=== PATIENT | male | born 2000 | race Caucasian/White ===

== ENCOUNTER 2024-09-19 14:30 | Outpatient (CLI) | payer BC, SELFPAY ==
--- NOTE | 2024-09-19 14:00 | DI.RAD_ITS ---
Exam(s) XR LUMBAR SPINE COMPLETE EXAM: XR LUMBAR SPINE COMPLETE CLINICAL HISTORY: eval pathology,lumbar spine, m54.50. TECHNIQUE: 2D digital imaging was performed of the lumbar spine. Images were obtained. AP, later al, right oblique, left oblique and L5-S1 spot views were obtained. COMPARISON: No exams were available for comparison FINDINGS: BONES: No fracture or destructive lesion. Vertebral bodies are unremarkable. No facet hypertrophy steve ntified. DISKS: Intervertebral disc spaces are maintained. ALIGNMENT: Lumbar spinal alignment is within normal limits. No spondylolysis or spondylolisthesis. SOFT TISSUE: Normal. IMPRESSION: Unremarkable radiographs of the lumbar spine. DATA REPOSITORY: RADIATION DOSE DELIVERED:
== END 2024-09-19 14:50 ==
LOC: DI 14:30
PROVIDERS: Visit Provider Nurse Practitioner Family
DX: M54.50 Low back pain, unspecified (principal)
CPT/HCPCS: 72110

== ENCOUNTER 2024-10-11 19:21 | Outpatient (REF) | payer BC, SELFPAY ==
[2024-10-11 21:20] LABS: Bilirubin Negative (Negative); Blood Trace-intact (Negative); Clarity Clear (Clear); Glucose Negative (Negative); Ketones Negative (Negative); Leukocyte Esterase Negative (Negative); Nitrite Negative (Negative); Specific Gravity 1.015 (1.005-1.025)
[2024-10-11 21:30] LABS: Bacteria Rare HPF (Negative); C & S Indicated? No; Casts Negative LPF (Negative); Crystals Rare Calcium Oxalate HPF (Negative); Epithelial Cells Rare HPF (Negative); Mucus Trace (Negative); RBC 0-2 HPF (0-2); WBC 0-2 HPF (0-5)
== END 2024-10-11 19:22 | disposition home or self-care (01) ==
LOC: LBN 19:21
PROVIDERS: Visit Provider Nurse Practitioner Family
DX: R39.9 Unspecified symptoms and signs involving the genitourinary system (principal)
CPT/HCPCS: 81003; 81015

== ENCOUNTER 2024-10-24 11:19 | Emergency (ER) | payer BC, SELFPAY ==
[2024-10-24 11:22] VITALS: BP 132/81; PULSE 76; RESP 20; TEMP 36.8; O2SAT 96
[2024-10-24 11:26] VITALS: BP 132/81; PULSE 76; RESP 20; TEMP 36.8; O2SAT 96
--- NOTE | 2024-10-24 11:39 | ED.GENADUL_ITS ---
Discharge Plan Disposition Patient Disposition: Home Condition: Stable Discharge Details Clinical Impression: Contusion of nose Primary Care Provider: Unknown,Unknown ED Provider: Gary Ospina Home Meds and New Rx's Prescriptions: No Action No Known Home Meds Discharge Instructions Instructions: Minor Contusion ED Additional Instructions: You were seen in the emergency department for your face strike with a mallet, there is no nasal fracture or maxillary jaw fracture, should you have resumption of nosebleed please just apply gentle pressure, return to the ED for any uncontrollable nosebleeds, take Tylenol and ibuprofen for pain as needed, return for any changes in neurologic status or vision, uncontrollable nosebleed or any other emergent concern. HPI General Date/Time Provider Initiated Documentation: 10/24/24 11:39 . HPI Narrative: 24 year-old male presents to ED today by POV/ambulating with a chief complaint of nose/upper lip injury while at work, was accidentally struck with a large mallet removing a tire from a rim with onset just prior to arrival- bleeding controlled with pressure. Quality described as no severe pain, able to breathe through his nose, no radiation to dental fracture, bridge of nose pain, periorbital ecchymosis, orbital pain, headache, visual changes, LOC, nausea/vomiting. Severity is described as mild. Palliating factors include nothing specific. Provoking factors include nothing specific. Patient not anticoagulated. Related Data Home Medications ?Medication ?Instructions ?Recorded ?Confirmed Unknown [No Known Home Meds] 10/11/24 0 10/24/24 Allergies Allergy/AdvReac Type Severity Reaction Status Date / Time No Known Allergies Allergy Verified 10/24/24 11:28 General Stated Complaint: FacialProb BRANDON: 4 Review of Systems All systems reviewed & are unremarkable except as noted in HPI and below Exam Narrative Exam Narrative: GENERAL APPEARANCE: Well-nourished, non-toxic, awake and alert, atraumatic, no acute distress. SKIN: Warm, pink, dry, intact, without rashes/lesions/ulcerations. HEAD: Normocephalic, atraumatic, normal hair distribution for gender/age. EYES: Normal conjunctiva, no exudates on lids/lashes, EOMs intact, vision grossly intact ENT: Nares patent, no circumoral cyanosis, no facial swelling, no nasal crepitus, no maxillary tenderness or crepitus, mild tenderness in the upper lip area without lesion, no epistaxis, no periorbital ecchymosis NECK: Supple, trachea midline, painless cervical ROM. LUNGS/CHEST: Non-labored respirations, normal A/P diameter, symmetrical expansion, no chest wall deformity HEART (CV/PV): No peripheral edema, no JVD. ABDOMEN: Soft, non-distended, no guarding. MSK: Normal ROM, no swelling/deformity to bilateral UEs or LEs, moving all ex tremities without weakness, no cyanosis, spine midline without tenderness, normal curvature. NEURO: Mental Status AAOx4 - alert to person, place, time, events No facial droop, no forehead involvement. Motor: No focal weakness - strength 5/5 in bilateral UEs and LEs, proximal and distal, symmetric. Sensory: sensation intact to light touch globally. Gait normal: patient ambulated without ataxia into ED room. PSYCH: euthymic, cooperative, pleasant, appropriate speech Course Vital Signs Vital signs: Vital Signs Temperature 36.8 C 10/24/24 11:22 Pulse 76 10/24/24 11:22 Respiratory Rate 20 10/24/24 11:22 Blood Pressure 132/81 10/24/24 11:22 Pulse Oximetry 96 10/24/24 11:22 Temperature 36.8 C 10/24/24 11:26 Pulse 76 10/24/24 11:26 Respiratory Rate 20 10/24/24 11:26 Blood Pressure 132/81 10/24/24 11:26 Blood Pressure Position Sitting 10/24/24 11:26 Pulse Oximetry 96 10/24/24 11:26 Oxygen Delivery Method Room Air 10/24/24 11:26 Oxygen Flow Rate 0 10/24/24 11:26 Medical Decision Making This dictation utilizes [id number] dictation software and may contain unedited grammatical errors. 24 year-old male presents to ED today by POV/ambulating with a chief complaint of nose/upper lip injury while at work, was accidentally struck with a large mallet removing a tire from a rim with onset just prior to arrival- bleeding controlled with pressure. Quality described as no severe pain, able to breathe through his nose, no radiation to dental fracture, bridge of nose pain, periorbital ecchymosis, orbital pain, headache, visual changes, LOC, nausea/vomiting. Severity is described as mild. Palliating factors include nothing specific. Provoking factors include nothing specific. Patients' medical history: Negative, otherwise healthy. Family and social history: Noncontributory. Pertinent exam findings / vital signs include no nasal crepitus, no maxillary tenderness or crepitus, mild tenderness in the upper lip area without lesion, no epistaxis, neuro intact, no periorbital ecchymosis, vision grossly intact. Differential / pathologies of concern include nasal fracture, maxillary fracture, epistaxis. Diagnostic studies of: - CT facial bones without contrast-no acute fracture seen. Interventions of: - None, recommend Tylenol and ibuprofen. ED Course/Assessment/Plan: 24-year-old male presents after being accidentally struck in the nose and upper lip with a mallet while taking a tire off of the rim, CT is negative for any facial fracture, counseled the patient on likely just soft tissue injury that will resolve and recommend Tylenol and ibuprofen. Findings not consistent with nasal fracture, maxillary fracture, facial fracture, active epistaxis. Disposition of contusion of nose. Patient verbalized understanding of the plan and return to ED criteria and engaged in shared decision making. Medical Records Medical records reviewed: Yes I reviewed the patient's medical records. Imaging Data Radiologic Study: Attestation: I personally reviewed and interpreted this imaging study as follows: Imaging: CT Scan Radiologist's impression: EXAM: CT FACIAL WO CLINICAL HISTORY: nasal, maxillary pain- struck with mallet. TECHNIQUE: Imaging Protocol: Axial computed tomography images with coronal and sagittal reformatted images were created and reviewed COMPARISON: No exams were available for comparison FINDINGS: CT Face: Facial Bones: No definite fracture is noted in facial bones. Sinuses and Mastoids: Unremarkable. Globes, extraocular muscles, optic nerves and retrobulbar fat: Normal. Upper aerodigestive tract: Normal. Mandible and bilateral temporomandibular joints: Normal. Soft tissues: There is some air in the soft tissues around the nose but no fractures appreciated. IMPRESSION: No acute facial fracture. PFSH All Active Problems (Updated 10/24/24 @ 15:03 by ADRIA Montes) Contusion of nose (Acute) Social History Smoking risk assessment performed?: No PAWSS Have you Been Recently Intoxicated or Drunk Within the Last 30 days?: No Have you Ever Experienced Previous Episodes of Alcohol Withdrawal?: No Have you ever Experienced Withdrawal Seizures?: No Have you ever Experienced Delirium Tremens(DT)s?: No Have you ever undergone Alcohol Rehabilitation Treatment (i.e, inpt ot outpatient treatment programs)?: No Have you ever Experienced Blackouts?: No Have you ever Combined Alcohol with other Downers within the last 90 days?: No Have you ever Combined Alcohol with any other Substance of Abuse during the last 90 days?: No Positive Blood Alcohol level on Presentation? [PCS.BAL]: No Evidence of Increased Autonomic Activity (i.e. HR>120, tremor, sweating, agitation, nausea)?: No Result: 0
--- NOTE | 2024-10-24 13:35 | DI.CT_ITS ---
Exam(s) CT FACIAL WO EXAM: CT FACIAL WO CLINICAL HISTORY: nasal, maxillary pain- struck with mallet. TECHNIQUE: Imaging Protocol: Axial computed tomography images with coronal and sagittal reformatted images were created and reviewed COMPARISON: No exams were available for comparison FINDINGS: CT Face: Facial Bones: No definite fracture is noted in facial bones. Sinuses and Mastoids: Unremarkable. Globes, extraocular muscles, optic nerves and retrobulbar fat: Normal. Upper aerodigestive tract: Normal. Mandible and bilateral temporomandibular joints: Normal. Soft tissues: There is some air in the soft tissues around the nose but no fractures appreciated. IMPRESSION: No acute facial fracture. RADIATION DOSE DELIVERED: 229.9mGy.cm Total DLP 229.9mGy.cm Total DLP DATA REPOSITORY: All CT scans at this facility are submitted to the National Radiology Data Registry (NRDR) Dose Index Registry (DIR) with the [employer] (A[employer]). RADIATION OPTIMIZATION: All CT scans at this facility use at least one of these dose optimization techniques: automated exposure control; mA and/or kV adjustment per patient size (includes targeted exams where dose is matched to clinical indication); or iterative reconstruction.
== END 2024-10-24 15:23 | disposition home or self-care (01) ==
PROVIDERS: Emergency Provider Physician Assistant
DX: S00.33XA Contusion of nose, initial encounter (principal); R04.0 Epistaxis; W22.8XXA Striking against or struck by other objects, initial encounter; Y93.89 Activity, other specified; Y92.69 Other specified industrial and construction area as the place of occurrence of the external cause; Y99.0 Civilian activity done for income or pay
CPT/HCPCS: 99284; 70486